=== PATIENT | male | born 1990 | race Hispanic/Latino ===

== ENCOUNTER 2016-07-22 14:32 | Emergency (ER) | payer OTHER ==
[2016-07-22] MEDS ORDERED: Lidocaine 1% 20 ML MDV ONE (14:43)
[2016-07-22] MEDS ORDERED: Adacel (T-DAP) 0.5 ML VIAL ONE (15:04)
[2016-07-22] MEDS ORDERED: HYDROcodone/Acetaminophen 10/325 mg Tablet ONE (15:04)
[2016-07-22] MEDS ORDERED: Cephalexin 500 MG CAP ONE (15:04)
[2016-07-22] MEDS ORDERED: Triple Antibiotic Oint 1 GM Packet ONE (15:18)
--- NOTE | 2016-07-22 15:27 | RAD ---
LEFT FIFTH FINGER THREE VIEWS: History: 25-year-old male with left fifth finger laceration and soft tissue injury from an electric saw. FINDINGS: There is soft tissue injury to the ulnar side of the distal fifth finger. Some arthrosis and deformi ty changes are noted at the proximal interphalangeal joint region, possibly related to old trauma. N o acute fracture. No overt, metallic density foreign body. IMPRESSION: Soft tissue injury to the ulnar side of the distal fifth finger. 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 No metal foreign edi dy. POS: [facility]
== END 2016-07-22 15:27 | disposition home or self-care (01) ==
LOC: NAV ERS 14:32
DX: S61.317A Laceration without foreign body of left little finger with damage to nail, initial encounter (principal); W27.0XXA Contact with workbench tool, initial encounter
CPT/HCPCS: 11720; 90471; 90715; 99001; J2001